=== PATIENT | male | born 1960 | race African-American/Black ===

== ENCOUNTER 2020-08-09 14:11 | Emergency (ER) | payer MEDICAID ==
[~2020-08-09] VITALS: Ht 177.8 cm; Wt 63.5 kg
[2020-08-09 14:17] VITALS: BP 107/71
--- NOTE | 2020-08-09 14:30 | NUR ---
SEEN AND EXAMINED BY .
--- NOTE | 2020-08-09 14:38 | NUR ---
Patient given written and verbal discharge instructions. Patient verbalizes understanding of instructions. Patient is ambulatory with steady gait. Refuses offer of [facility] placement. Patient given list of available shelters in surrounding area.
== END 2020-08-09 14:39 | disposition home or self-care (01) ==
LOC: ER 14:18
DX: Z00.8 Encounter for other general examination (principal); Z59.0 Homelessness